=== PATIENT | male | born 1940 | race Two or more races ===

== ENCOUNTER 2020-09-04 22:09 | Inpatient (IN) | payer MEDICARE, OTHER ==
[~2020-09-04] VITALS: Ht 172.7 cm; Wt 69.4 kg
[~2020-09-04 22:09] MED LIST: ASPI81TA3 OR; FISH1000 OR; FLOM0.4C39 OR; GINKGO BILOBA OR; HYDR50TA8 OR; MULTIVIT OR; NEXI1CAP3 OR; NITR0.4S SL; SIMV20TA2 OR; VITAMIN D50000 UNT OR; flax seed OR; occuvite OR; saw palmetto OR
[2020-09-05 01:45] VITALS: BP 120/71
--- NOTE | 2020-09-05 02:27 | HPEPDOC ---
[facility] Medical History & Physical Date of Admission Sep 05, 2020 Date of Service: Sep 05, 2020 Attending Physician: DELANO CARBONE MD History and Physical TIME OF SERVICE: 230AM CHIEF COMPLAINT: cough HISTORY OF PRESENT ILLNESS: This 79-year-old gentleman presented to his PCP one week ago with complaints of cough for 2 weeks. He was diagnosed with bilateral upper lobe infiltrates and started on antibiotics. He called his primary care provider yesterday because he continued to have shortness of breath. His cough had improved and he had right posterior back pain that was worse with coughing; he denied having fevers, chills, nausea, vomiting or diarrhea; subsequently presented to [facility] and was diagnosed with COVID 19. He was noted to have O2 sats that dropped from 90 to 92% on room air but improved to 99% with 2 L of oxygen and was noted to have a respiratory rate as high as 38 while talked; based on their algorithm, he was high risk therefore requested answered to [facility] for a higher level of care. The rest of the workup of [facility] was remarkable for bilateral pneumonia. His WBC count was 9.3, hemoglobin was 13, ointments were 323, sodium was 137, potassium of 3.3, chloride was 99, bicarbonate was 29.4, BUN was 13, creatinine was 1.2, and glucose was 113. LFTs were unremarkable REVIEW OF SYSTEMS: 12 point review of systems negative except as listed in HPI PAST MEDICAL/ SURGICAL HISTORY: BPH GERD Herniorrhapy SOCIAL HISTORY: Doesn't smoke. He is a retired law enforcement agent and is FAMILY HISTORY: His father had a massive heart attack in his brother has CAD ALLERGIES: Please see below. HOME MEDICATIONS: Please see below. PHYSICAL EXAMINATION: Vital Signs Date Time Temp Pulse Resp B/P (MAP) Pulse Ox O2 Delivery O2 Flow Rate FiO2 09/05/20 01:45 96.2 90 23 120/71 (87) 100 Nasal Cannula 3.0 GEN: well-nourished / well developed/ NAD INTEGUMENT: not flushed/ not jaundice / no rashes HEENT: NC in place/mucus membranes moist and pink CVS: RRR/NMRG/ radial pulses intact / no lower extremity edema LUNGS: able to speak full sentences without stopping to take a breath / coughing / dry crackles ABDOMEN: Contour (flat) / soft & not tender with palpation MSK/EXTREMITIES: NCAT / range of motion intact in all 4 extremities NEURO: CN 2-12 are grossly intact / speech is not dysarthric PSYCH: alert and oriented to person place and time/ able to understand and follow all commands LABORATORY DATA: 09/05/20 03:30 IMAGING: see HPI MICROBIOLOGY: Please see below. ASSESSMENT: Mr. Puga is a 79-year-old with a history of BPH and GERD. Will be admitted for management of moderate to COVID 19 pneumonia. PLAN: 1. COVID-19 PNA He has dyspnea, cough and tachypnea Blood work from a neuro was generally unremarkable. The chest x-ray showed bilateral pneumonia Reasons for admission include his qCSI score is 4, which puts him in the moderate category, age > 65, gender, and tachypnea. Plan: admit to PCU / contact & air borne precautions /continuous pulse ox/ supplemental O2 to target O2 sats between 92-95% / in 12 H f/u repeat WBC # (if low indicates a poor prognosis, plts (if low indicates bad prognosis), CRP (if high indicates bad prognosis), INR, BMP, fibrinogen, INR, D-dimer, PT, PTT (if patient has DIC indicates bad prognosis), ferritin, LDH, start ceftriaxone and azithromycin pending procalcitonin, f/u sputum cx, strep pneumo, legionella , f/u troponins / because he is O2 dependent, we will start Remdesivir and ask the daytime team to consult pulmonology / jassi berrios for cough / Tramadol & Flector patch for chest wall pain 2. BPH Plan: Tamsulosin and finasteride 3. GERD Plan: PPI DVT PROPHYLAXIS: lovenox and ASA DISPOSITION: home after more than 2 midnight's stay Home Medications Scheduled Cyclosporine (Restasis) 0.05% Droperette, 1 DROP OU BID Ergocalciferol (Vitamin D2) (Vitamin D2) 50,000 Units Cap, 50,000 UNITS PO Q2WK TAKES THE 1ST AND 15TH Finasteride (Finasteride) 1 Mg Tablet, 1 MG PO DAILY Lifitegrast (Xiidra) 5% Droperette, 1 DROP OU BID Omeprazole (Omeprazole) 20 Mg Capsule.dr, 20 MG PO BID Simvastatin (Simvastatin) 20 Mg Tablet, 20 MG PO QHS Tamsulosin Hcl (Tamsulosin HCl) 0.4 Mg Capsule, 0.4 MG PO QHS Scheduled PRN Hydroxyzine HCl (Hydroxyzine HCl) 50 Mg Tablet, 50 MG PO QHS PRN for SLEEP Allergies Coded Allergies: codeine (Verified Allergy, Unknown, 09/05/20) DELANO CARBONE MD Sep 05, 2020 02:26
[2020-09-05] MEDS ORDERED: MOM 30ML SUSPENSION UDC PO PRN (02:30)
[2020-09-05] MEDS ORDERED: ACETAMINOPHEN TAB 650MG DOSE (2X325MG) PO PRN (02:30)
[2020-09-05] MEDS ORDERED: MAALOX 30 ML SUSP *UDC PO PRN (02:30)
[2020-09-05] MEDS ORDERED: XIID5DRO OU (02:34)
[2020-09-05] MEDS ORDERED: OMEP-218 PO (02:34)
[2020-09-05] MEDS ORDERED: VITA50005 PO (02:34)
[2020-09-05] MEDS ORDERED: REST0.05 OU (02:34)
[2020-09-05] MEDS ORDERED: HYDR50TA70 PO (02:34)
[2020-09-05] MEDS ORDERED: SIMV20TA22 PO (02:34)
[2020-09-05] MEDS ORDERED: TAMS1CAP17 PO (02:34)
[2020-09-05] MEDS ORDERED: FINA1TAB12 PO (02:36)
[2020-09-05] MEDS ORDERED: traMADol 50 MG TAB PO PRN (03:00)
[2020-09-05 03:55] LABS: BASO % 0.3 % (0.0-1.0); EOS # 0.1 10^3/uL (0.0-0.5); EOS % 1.5 % (0.0-3.0); HEMOGLOBIN 10.9 g/dl (13.5-17.5); LYMPH % 14.9 % (24.0-44.0); MEAN CORPUSCULAR HGB CONC 31.1 g/dl (32.0-36.5); MONO # 0.9 10^3/uL (0.0-0.8); MONO % 13.1 % (0.0-5.0); NEUTROPHILS # 4.7 10^3/uL (1.5-8.5); NEUTROPHILS % 69.5 % (36.0-66.0); PLATELET COUNT, AUTOMATED 282 10^3/uL (150-450); RED BLOOD COUNT 3.89 10^6/uL (4.30-6.10); WHITE BLOOD COUNT 6.7 10^3/uL (4.0-10.0)
[2020-09-05 04:00] VITALS: BP 128/71
[2020-09-05] MEDS ORDERED: hydrOXYzine 50 MG TAB PO PRN (04:00)
[2020-09-05 04:08] LABS: FIBRINOGEN 677 MG/DL (221-452); PARTIAL THROMBOPLASTIN TIME 36.9 SECONDS (24.2-38.5); PROTHROMBIN TIME 14.4 SECONDS (12.5-14.3)
[2020-09-05] MEDS: TAMSULOSIN 0.4 MG CAP PO SCH ×2 (04:08→21:51)
[2020-09-05] MEDS: OMEPRAZOLE 20 MG CAP PO SCH ×2 (04:08→21:51)
[2020-09-05] MEDS: SIMVASTATIN 20 MG TAB PO SCH ×2 (04:08→21:51)
[2020-09-05] MEDS: DICLOFENAC EPOLAMINE 1.3 % PATCH TOP SCH ×2 (04:10→18:14)
[2020-09-05 04:42] LABS: D-DIMER QUANT > 4000 ng/ml (<500)
[2020-09-05] MEDS ORDERED: SODIUM CHLORIDE 0.9% INJ 10 ML SYR IV ONE (05:00)
[2020-09-05 06:51] LABS: ALBUMIN 2.2 GM/DL (3.2-5.2); ALT/SGPT 15 U/L (12-78); BILIRUBIN,DIRECT 0.2 MG/DL (0.0-0.2); BILIRUBIN,TOTAL 0.7 MG/DL (0.2-1.0); BLOOD UREA NITROGEN 13 MG/DL (7-18); CALCIUM LEVEL 8.8 MG/DL (8.8-10.2); CARBON DIOXIDE LEVEL 31 MEQ/L (21-32); CHLORIDE LEVEL 107 MEQ/L (98-107); CK-MB VALUE MASS 3.8 NG/ML (<3.6); CPK CREATINE PHOSPHOKINASE 27 U/L (39-308); CREATININE FOR GFR 1.06 MG/DL (0.70-1.30); FERRITIN 502 NG/ML (26-388); GLOMERULAR FILTRATION RATE > 60.0 (>42); GLUCOSE, FASTING 102 MG/DL (70-100); LDH LACTATE DEHYDROGENASE 219 U/L (87-241); MB/CK RELATIVE INDEX 14.07 (< OR =4); NT-PRO BNP 225 PG/ML (<450); POTASSIUM SERUM 3.6 MEQ/L (3.5-5.1); SODIUM LEVEL 141 MEQ/L (136-145); TOTAL PROTEIN 6.5 GM/DL (6.4-8.2); TRIGLYCERIDES LEVEL 101 MG/DL (<150); TROPONIN I < 0.02 NG/ML (< 0.10)
[2020-09-05] MEDS: BENZONATATE 100 MG CAP PO SCH ×3 (08:16→21:51)
[2020-09-05] MEDS: ASPIRIN 81 MG ENTERIC TAB PO SCH (08:16)
[2020-09-05] MEDS: dexameTHASONE 4 MG/ML 1ML VIAL (J1100 PER 1MG) IV SCH (08:17)
[2020-09-05] MEDS ORDERED: FINA5TAB2 PO (08:22)
[2020-09-05 08:24] VITALS: O2SAT 94
[2020-09-05] MEDS ORDERED: POLYVINYL ALCOHOL OPHTH SOLN 15 ML(LIQUITEARS) OU PRN (09:00)
[2020-09-05] MEDS ORDERED: FINASTERIDE 5 MG TAB PO SCH (09:00)
[2020-09-05] MEDS ORDERED: ENOXAPARIN 40MG/0.4ML SYRINGE (J1650 PER 10MG) SC SCH (09:00)
[2020-09-05] MEDS ORDERED: CYCLOSPORINE 0.05% OU SCH (09:00)
[2020-09-05 09:20] LABS: HEPATITIS B SURFACE ANTIGEN NEGATIVE (NEGATIVE)
[2020-09-05 09:48] LABS: HIV 1&2 SCREEN CENTAUR NEGATIVE (NEGATIVE)
[2020-09-05] MEDS: FINASTERIDE 5 MG TAB PO SCH (10:56)
[2020-09-05 12:00] VITALS: O2SAT 94
[2020-09-05 14:00] VITALS: BP 116/75; O2SAT 94
[2020-09-05 14:21] LABS: BASO % 0.1 % (0.0-1.0); HEMATOCRIT 34.5 % (42.0-52.0); HEMOGLOBIN 11.6 g/dl (13.5-17.5); LYMPH # 0.5 10^3/uL (1.5-5.0); LYMPH % 6.3 % (24.0-44.0); MEAN CORPUSCULAR HEMOGLOBIN 29.9 pg (27.0-33.0); MEAN CORPUSCULAR HGB CONC 33.6 g/dl (32.0-36.5); MEAN CORPUSCULAR VOLUME 88.9 fl (80.0-96.0); MONO # 0.2 10^3/uL (0.0-0.8); MONO % 1.9 % (0.0-5.0); NEUTROPHILS # 7.5 10^3/uL (1.5-8.5); NEUTROPHILS % 91.1 % (36.0-66.0); PLATELET COUNT, AUTOMATED 288 10^3/uL (150-450); RED BLOOD COUNT 3.88 10^6/uL (4.30-6.10); WHITE BLOOD COUNT 8.2 10^3/uL (4.0-10.0)
[2020-09-05 14:32] LABS: FIBRINOGEN 649 MG/DL (221-452); INR 1.07; PROTHROMBIN TIME 14.1 SECONDS (12.5-14.3)
[2020-09-05 14:33] LABS: PARTIAL THROMBOPLASTIN TIME 42.9 SECONDS (24.2-38.5)
[2020-09-05 14:57] LABS: FERRITIN 487 NG/ML (26-388); LDH LACTATE DEHYDROGENASE 223 U/L (87-241); NT-PRO BNP 273 PG/ML (<450); TRIGLYCERIDES LEVEL 80 MG/DL (<150); TROPONIN I < 0.02 NG/ML (< 0.10)
[2020-09-05 15:14] LABS: D-DIMER QUANT > 4000 ng/ml (<500)
[2020-09-05 20:00] VITALS: BP 146/64
[2020-09-05] MEDS: ENOXAPARIN 30MG/0.3ML SYRINGE (J1650 PER 10MG) SC SCH (21:52)
[2020-09-06 01:30] VITALS: BP 140/70
[2020-09-06 04:00] VITALS: BP 141/73
[2020-09-06] MEDS ORDERED: SODIUM CHLORIDE 0.9% INJ 10 ML SYR IV SCH (05:00)
[2020-09-06] MEDS: BENZONATATE 100 MG CAP PO SCH ×3 (06:23→21:46)
[2020-09-06] MEDS: DICLOFENAC EPOLAMINE 1.3 % PATCH TOP SCH ×2 (06:23→18:24)
[2020-09-06 07:35] LABS: BASO % 0.3 % (0.0-1.0); EOS % 0.3 % (0.0-3.0); HEMATOCRIT 35.1 % (42.0-52.0); LYMPH # 1.5 10^3/uL (1.5-5.0); LYMPH % 17.7 % (24.0-44.0); MEAN CORPUSCULAR HEMOGLOBIN 28.1 pg (27.0-33.0); MEAN CORPUSCULAR HGB CONC 31.3 g/dl (32.0-36.5); MEAN CORPUSCULAR VOLUME 89.8 fl (80.0-96.0); MONO # 0.9 10^3/uL (0.0-0.8); MONO % 10.5 % (0.0-5.0); NEUTROPHILS # 6.1 10^3/uL (1.5-8.5); NEUTROPHILS % 70.6 % (36.0-66.0); PLATELET COUNT, AUTOMATED 299 10^3/uL (150-450); RED BLOOD COUNT 3.91 10^6/uL (4.30-6.10); WHITE BLOOD COUNT 8.7 10^3/uL (4.0-10.0)
[2020-09-06 07:51] LABS: PARTIAL THROMBOPLASTIN TIME 38.6 SECONDS (24.2-38.5)
[2020-09-06 07:54] LABS: FIBRINOGEN 552 MG/DL (221-452); INR 1.12; PROTHROMBIN TIME 14.6 SECONDS (12.5-14.3)
[2020-09-06 08:00] VITALS: BP 125/65
[2020-09-06 08:06] LABS: BLOOD UREA NITROGEN 16 MG/DL (7-18); CALCIUM LEVEL 9.1 MG/DL (8.8-10.2); CARBON DIOXIDE LEVEL 33 MEQ/L (21-32); CHLORIDE LEVEL 104 MEQ/L (98-107); CREATININE FOR GFR 1.01 MG/DL (0.70-1.30); FERRITIN 465 NG/ML (26-388); GLOMERULAR FILTRATION RATE > 60.0 (>42); GLUCOSE, FASTING 96 MG/DL (70-100); MAGNESIUM LEVEL 2.1 MG/DL (1.8-2.4); NT-PRO BNP 406 PG/ML (<450); POTASSIUM SERUM 3.8 MEQ/L (3.5-5.1); SODIUM LEVEL 141 MEQ/L (136-145)
[2020-09-06 08:14] LABS: D-DIMER QUANT > 4000 ng/ml (<500)
[2020-09-06] MEDS: FINASTERIDE 5 MG TAB PO SCH (08:17)
[2020-09-06] MEDS: OMEPRAZOLE 20 MG CAP PO SCH ×2 (08:17→21:46)
[2020-09-06] MEDS: ASPIRIN 81 MG ENTERIC TAB PO SCH (08:17)
[2020-09-06] MEDS: ENOXAPARIN 30MG/0.3ML SYRINGE (J1650 PER 10MG) SC SCH ×2 (08:18→21:46)
[2020-09-06] MEDS: dexameTHASONE 4 MG/ML 1ML VIAL (J1100 PER 1MG) IV SCH (08:18)
[2020-09-06] MEDS ORDERED: BENZONATATE 100 MG CAP PO SCH (11:30)
[2020-09-06] MEDS ORDERED: guaiFENesin/CODEINE SYRUP 5 ML UDC PO SCH (12:00)
[2020-09-06] MEDS ORDERED: BISACODYL 5 MG TAB PO ONE (13:00)
[2020-09-06] MEDS: guaiFENesin SYRUP 200 MG/10 ML UDC PO SCH ×3 (14:36→21:46)
[2020-09-06 16:00] VITALS: BP 127/75
--- NOTE | 2020-09-06 17:34 | IPNPDOC ---
Text Note Date of Service The patient was seen on 09/06/20. NOTE Subjective: Patient seen and examined this morning at bedside. Tells me she feeling much better now the only remaining troublesome issue is his persistent dry cough as it causes chest and abdominal discomfort as he is constantly coughing. Tessalon Perles helped a little but wondering if he can try something more. There is no acute overnight events. Patient denies any chest pain no abdominal pain at this time. Objective: Constitutional: Awake and alert, in no apparent distress ENT: Sclera are clear Respiratory: Lungs CTA bilaterally. No respiratory distress. No use of accessory muscles. On room air saturating at 95% Cardiovascular: Regular heart rate Gastrointestinal: Abdomen is soft, non distended, non tender Musculoskeletal: No edema Neurologic: No focal neurological deficit. Mental Status: A&O x3, normal affect Skin: Warm, dry Assessment/plan: 79-year-old male Covid infection transferred to [facility] for persistent symptoms and returned as severe administration. Patient has been symptomatically 3 weeks and not eligible for endoscopy at this time. He does not have an underlying pneumonia. He does not have shortness of breath at this time. Does not require oxygen even on exertion at this time as he has not dropped below 88%. His most significant concern is cough which has been persistent. Patient has been taking Tessalon drops and guaifenesin scheduled has been added. # COVID 19 infection: Does not have dyspnea at rest and is able to speak long sentences without becoming short of breath he does get a little tired when he walks around the room for an extended period. Persistent cough. Procalcitonin negative 3x. Underlying bacterial infection suspected no need for antibiotics. Ferritin downtrending. No leukocytosis. Assessment tomorrow to see if he requires oxygen on ambulation. Patient is not eligible for severe S onset of symptoms was 3 weeks ago. # Persistent dry cough related to Covid 19 infection: Robitussin pearls. Added scheduled guaifenesin. # BPH: Tamsulosin and finasteride # GERD: PPI # DVT prophylaxis: Lovenox COVID prophylactic dose A [facility] VS,Fishbone, I+O VS, Fishbone, I+O Laboratory Tests 09/06/20 06:35 Vital Signs Date Time Temp Pulse Resp B/P (MAP) Pulse Ox O2 Delivery O2 Flow Rate FiO2 09/06/20 16:00 97.8 91 20 127/75 (92) 94 Room Air 09/06/20 04:00 1.0 I&O- Last 24 Hours up to 6 AM 09/06/20 05:59 Intake Total 1650 ml Output Total 300 ml Balance 1350 ml CLAYTON RIZZO MD Sep 06, 2020 17:34
[2020-09-06 20:00] VITALS: BP 116/64; O2SAT 92
[2020-09-06] MEDS: TAMSULOSIN 0.4 MG CAP PO SCH (21:45)
[2020-09-06] MEDS: SIMVASTATIN 20 MG TAB PO SCH (21:46)
[2020-09-07] VITALS: BP 139/74; O2SAT 92
[2020-09-07] MEDS: guaiFENesin SYRUP 200 MG/10 ML UDC PO SCH ×4 (00:06→13:05)
[2020-09-07 03:54] VITALS: O2SAT 93
[2020-09-07 04:00] VITALS: BP 130/71
[2020-09-07] MEDS: BENZONATATE 100 MG CAP PO SCH ×2 (06:16→13:05)
[2020-09-07] MEDS: DICLOFENAC EPOLAMINE 1.3 % PATCH TOP SCH (06:16)
[2020-09-07] MEDS: FINASTERIDE 5 MG TAB PO SCH (08:30)
[2020-09-07] MEDS: dexameTHASONE 4 MG/ML 1ML VIAL (J1100 PER 1MG) IV SCH (08:30)
[2020-09-07] MEDS: OMEPRAZOLE 20 MG CAP PO SCH (08:30)
[2020-09-07] MEDS: ASPIRIN 81 MG ENTERIC TAB PO SCH (08:30)
[2020-09-07] MEDS: ENOXAPARIN 30MG/0.3ML SYRINGE (J1650 PER 10MG) SC SCH (08:31)
--- NOTE | 2020-09-07 13:15 | DS.PDOC ---
Discharge Summary General Date of Admission Sep 05, 2020 at 01:49 Date of Discharge 09/07/2020 Discharge Summary PROCEDURES PERFORMED DURING STAY: [None]. ADMITTING DIAGNOSES: 1. COVID 19 infection DISCHARGE DIAGNOSES: 1. Persistent dry cough possibly related to Covid 19 infection 2. COVID 19 infection COMPLICATIONS/CHIEF COMPLAINT: Covid-19. HISTORY OF PRESENT ILLNESS: From H&P: This 79-year-old gentleman presented to his PCP one week ago with complaints of cough for 2 weeks. He was diagnosed with bilateral upper lobe infiltrates and started on antibiotics. He called his primary care provider yesterday because he continued to have shortness of breath. His cough had improved and he had right posterior back pain that was worse with coughing; he denied having fevers, chills, nausea, vomiting or diarrhea; subsequently presented to [facility] and was diagnosed with COVID 19. He was noted to have O2 sats that dropped from 90 to 92% on room air but improved to 99% with 2 L of oxygen and was noted to have a respiratory rate as high as 38 while talked; based on their algorithm, he was high risk therefore requested answered to [facility] for a higher level of care. The rest of the workup of [facility] was remarkable for bilateral pneumonia. His WBC count was 9.3, hemoglobin was 13, ointments were 323, sodium was 137, potassium of 3.3, chloride was 99, bicarbonate was 29.4, BUN was 13, creatinine was 1.2, and glucose was 113. LFTs were unremarkable HOSPITAL COURSE: 79-year-old male Covid infection transferred to [facility] for persistent symptoms of covid and rimdasivir administration. Patient has been symptomatically 3 weeks and not eligible for endoscopy at this time. He does not have an underlying pneumonia. He does not have shortness of breath at this time. Does not require oxygen even on exertion at this time as he has not dropped below 88%. His most significant concern is cough which has been persistent. Patient has been taking Tessalon drops and guaifenesin scheduled has been added. # COVID 19 infection: Does not have dyspnea at rest and is able to speak long sentences without becoming short of breath. Persistent cough. Procalcitonin negative 3x. No underlying bacterial infection suspected no need for antibiotics. Ferritin downtrending. No leukocytosis. Does not need supplement ox ygen on ambulation. Patient is not eligible for Rimdasivir onset of symptoms was 3 weeks ago. # Persistent dry cough possibly related to Covid 19 infection: Robitussin pearls. guaifenesin. May or may not be Covid related and may require further workup by primary care doctor upon discharge. # BPH: Tamsulosin and finasteride # GERD: PPI DISCHARGE MEDICATIONS: Please see below. ALLERGIES: Please see below. PHYSICAL EXAMINATION ON DISCHARGE: Constitutional: Awake and alert, in no apparent distress ENT: Sclera are clear Respiratory: Lungs CTA bilaterally. No respiratory distress. No use of accessory muscles. On room air saturating at 95% Cardiovascular: Regular heart rate Gastrointestinal: Abdomen is soft, non distended, non tender Musculoskeletal: No edema Neurologic: No focal neurological deficit. Mental Status: A&O x3, normal affect Skin: Warm, dry LABORATORY DATA: Please see below. PROGNOSIS: fair ACTIVITY: [As tolerated]. DIET: Regular DISPOSITION: Home. [place] recommendations given per CDC guidelines. DISCHARGE INSTRUCTIONS: Please follow up with your primary care physician within 1 week from discharge. If you do not have one, please follow up with us to schedule an appointment. Please keep all of your follow up appointments. Please call central to book your appointments with hospital specialists. Please take all your medications as prescribed. Please call/come to Clinic or go to the Emergency Department if - Temp >101, intractable Nausea/Vomiting, Diarrhea, Mouth sores, Headaches, Altered mental status, Seizures, sudden onset of swelling, bleeding, shortness of breath or chest pain. [place] recommendations given per CDC guidelines. ITEMS TO FOLLOWUP ON ON OUTPATIENT: Follow-up with primary care doctor within a week of discharge, ideally by telemedicine of possible DISCHARGE CONDITION: [Stable]. TIME SPENT ON DISCHARGE: Greater than 40 minutes. Vital Signs/I&Os Vital Signs Date Time Temp Pulse Resp B/P (MAP) Pulse Ox O2 Delivery O2 Flow Rate FiO2 09/07/20 04:00 97.8 74 20 130/71 (90) 92 Room Air 09/06/20 04:00 1.0 I&O- Last 24 Hours up to 6 AM 09/07/20 06:00 Intake Total 600 ml Output Total 550 ml Balance 50 ml Microbiology Microbiology 09/05/20 Blood Culture - Preliminary, Resulted No growth after 24 hours . All specim... 09/05/20 Blood Culture - Preliminary, Resulted No Growth after 48 hours. All Specime... Discharge Medications Scheduled Cyclosporine (Restasis) 0.05% Droperette, 1 DROP OU BID, (Reported) Ergocalciferol (Vitamin D2) (Vitamin D2) 50,000 Units Cap, 50,000 UNITS PO Q2WK, (Reported) TAKES THE 1ST AND 15TH Finasteride (Finasteride) 5 Mg Tablet, 5 MG PO DAILY, (Reported) Lifitegrast (Xiidra) 5% Droperette, 1 DROP OU BID, (Reported) Omeprazole (Omeprazole) 20 Mg Capsule.dr, 20 MG PO BID, (Reported) Simvastatin (Simvastatin) 20 Mg Tablet, 20 MG PO QHS, (Reported) Tamsulosin Hcl (Tamsulosin HCl) 0.4 Mg Capsule, 0.4 MG PO QHS, (Reported) Scheduled PRN Hydroxyzine HCl (Hydroxyzine HCl) 50 Mg Tablet, 50 MG PO QHS PRN for SLEEP, (Reported) Allergies Coded Allergies: codeine (Verified Allergy, Unknown, 09/05/20) CLAYTON RIZZO MD Sep 07, 2020 13:15
[2020-09-07] MEDS ORDERED: GUAI100S51 PO (13:32)
[2020-09-07] MEDS ORDERED: ACET1TAB55 PO (13:32)
[2020-09-07] MEDS ORDERED: VENTAER INH (13:32)
[2020-09-07] MEDS ORDERED: BENZ-18 PO (13:32)
[2020-09-08 16:11] LABS: HEPATITIS B CORE ANTIBODY IGG Negative (Negative); MYCOPLASMA PNEUMONIAE IgG 422 U/mL (0-99); MYCOPLASMA PNEUMONIAE IgM 798 U/mL (0-769)
[2020-09-09 17:10] LABS: BODY FLUID CULTURE Not indicated. (.); LEGIONELLA ANTIGEN URINE Negative (Negative); ORGANISM ID Not indicated. (.); SPECIMEN SOURCE Urine (.); URINE STREP PNEUMONIAE ANTIGEN Negative (Negative)
== END 2020-09-07 16:10 | disposition home health service (06) | DRG 179 ==
LOC: M 4MAIN 09-05 01:49
PROVIDERS: ADMIT Internal Medicine; ATTEND Family Medicine
PROC: XW043E5 Introduction of Remdesivir Anti-infective into Central Vein, Percutaneous Approach, New Technology Group 5 (ICD-10-PCS; principal; 2020-09-05)
PROC: 3E0333Z Introduction of Anti-inflammatory into Peripheral Vein, Percutaneous Approach (ICD-10-PCS; 2020-09-05)
DX: U07.1 COVID-19 (principal); N40.0 Benign prostatic hyperplasia without lower urinary tract symptoms; K21.9 Gastro-esophageal reflux disease without esophagitis; Z79.899 Other long term (current) drug therapy; Z88.5 Allergy status to narcotic agent; R05 Cough

== ENCOUNTER → 2025-01-21 | Outpatient (CLI) | payer MEDICARE, OTHER ==
[~2025-01-21] MED LIST changes: +ACET1TAB55 PO; +BENZ-18 PO; +ERGO500029 PO; +FINA1TAB4 PO; +FINA5TAB2 PO; +GUAI100S51 PO; +HYDR50TA70 PO; +LIFI1DRO4 OU; +OMEP-173 PO; +REST0.05 OU; +SIMV20TA22 PO; +TAMS1CAP17 PO; +VENTAER INH
== END ==
LOC: M WUC 11:57
PROVIDERS: ATTEND Nurse Practitioner Family
DX: R07.82 Intercostal pain (principal); Z91.81 History of falling